=== PATIENT | female | born 1960 | race Hispanic/Latino ===

== ENCOUNTER → 2017-07-04 | Outpatient (RCR) | payer BC | LOC: PT 06-18 09:50 | PROVIDERS: ATTEND Orthopaedic Surgery | DX: M43.16 Spondylolisthesis, lumbar region (principal); M51.16 Intervertebral disc disorders with radiculopathy, lumbar region; M54.5 Low back pain; M25.551 Pain in right hip; M79.651 Pain in right thigh; R26.2 Difficulty in walking, not elsewhere classified ==

== ENCOUNTER 2017-07-13 11:00 | Outpatient (RCR) | payer SELFPAY | END 2017-08-04 | LOC: PT 11:00 | PROVIDERS: ATTEND Orthopaedic Surgery | DX: M43.16 Spondylolisthesis, lumbar region (principal); M54.5 Low back pain; M25.551 Pain in right hip; M79.651 Pain in right thigh; R26.2 Difficulty in walking, not elsewhere classified ==